=== PATIENT | female | born 1985 | race Caucasian/White ===

== ENCOUNTER 2016-12-14 10:51 | Emergency (ER) ==
[2016-12-14 11:07] VITALS: BP 135/95; TEMP 99.1; BMI 18.2
--- NOTE | 2016-12-14 11:49 | ED.PDOC ---
General ED Provider: Dr. BERNARDINO ADLER JR Chief Complaint: Hypertension Stated Complaint: Elevated BP x 5 days. Hx HTN. Took self off BP med a couple years ago. BP at home was 161/104 at 0930. Gets high if she gets up and moves around. Legs felt weak, SOA (98% on ra in triage). 99.1 92 20 98% 135/95 04/14 Time Seen by Physician: 11:43 Mode of Arrival: Walk-In Information Source: Patient Exam Limitations: No limitations Primary Care Provider: GARRETT HALE Nursing and Triage Documentation Reviewed and Agree: No Review of Systems - Review Of Systems Constitutional: Reports: Malaise Eyes: Reports: No symptoms Ears, Nose, Mouth, Throat: Reports: No symptoms Respiratory: Reports: No symptoms Cardiac: Reports: Chest pain, Palpitations GI: Reports: No symptoms : Reports: No symptoms Musculoskeletal: Reports: No symptoms Skin: Reports: No symptoms Neurological: Reports: Anxiety Endocrine: Reports: No symptoms Hematologic/Lymphatic: Reports: No symptoms All Other Systems: Other Past Medical History - Past Medical History Endocrine: Reports: None Cardiovascular: Reports: Hypertension Respiratory: Reports: None Hematological: Reports: None Gastrointestinal: Reports: None Genitourinary: Reports: None Neuro/Psych: Reports: None Musculoskeletal: Reports: None Cancer: Reports: None Last Menstrual Period: 11/24/16 - Surgical History General Surgical History: Reports: Tubal ligation - Family History Family History: Reports: Heart, Hypertension - Social History Smoking Status: Current every day smoker, Light tobacco smoker Hx Substance Use: No Alcohol Screening: None Physical Exam - Physical Exam Appearance: Well-appearing, Thin Pain Distress: Moderate Eyes: NAKITA, EOMI, Conjunctiva clear ENT: Ears normal, Nose normal, Oropharynx normal Neck: Supple Respiratory: Airway patent, Breath sounds clear, Breath sounds equal, Respirations nonlabored Cardiovascular: RRR, Pulses normal, No rub, No murmur GI/: Soft, Nontender, No masses, Bowel sounds normal, No Organomegaly Musculoskeletal: Normal strength, ROM intact, No edema, No calf tenderness Skin: Warm, Dry, Normal color Neurological: Sensation intact, Motor intact, Reflexes intact, Cranial nerves intact, Alert, Oriented Psychiatric: Affect appropriate, Mood appropriate, Anxious Critical Care Note - Critical Care Note Total Time (mins): 5 Course - Course Hematology/Chemistry: 12/14/16 12:05 12/14/16 12:05 Orders, Labs, Meds: Lab Review 12/14/16 12/14/16 12/14/16 12:05 12:05 12:05 WBC 9.52 RBC 4.78 Hgb 14.5 Hct 41.1 MCV 86.0 MCH 30.3 MCHC 35.3 RDW Coeff of Josey 12.0 Plt Count 159 Immature Gran % (Auto) 0.4 Neut % (Auto) 72.7 Lymph % (Auto) 20.7 [place] % (Auto) 5.0 Eos % (Auto) 0.8 Baso % (Auto) 0.4 Immature Gran # (Auto) 0.0 Neut # 6.9 Lymph # 2.0 [place] # 0.5 Eos # 0.1 Baso # 0.0 Sodium 139 Potassium 4.2 Chloride 108 H Carbon Dioxide 21 Anion Gap 14.2 BUN 11 Creatinine 0.77 Estimated GFR (MDRD) 86.00 BUN/Creatinine Ratio 14.28 Glucose 82 Calcium 9.7 Total Bilirubin 0.83 AST 17 ALT 17 Alkaline Phosphatase 68 Total Creatine Kinase 82 Troponin I < 0.0100 B-Natriuretic Peptide < 10 Total Protein 7.1 Albumin 4.1 Globulin 3.0 Albumin/Globulin Ratio 1.37 Orders Category Date Time Status EKG-(ED ONLY) Stat CARDIO 12/14/16 11:36 Completed B-TYPE NATRIURETIC PEPTIDE Stat LAB 12/14/16 12:05 Completed CBC W/ AUTO DIFF Stat LAB 12/14/16 12:05 Completed COMPREHENSIVE METABOLIC PANEL Stat LAB 12/14/16 12:05 Completed CREATINE KINASE Stat LAB 12/14/16 12:05 Completed TROPONIN I Stat LAB 12/14/16 12:05 Completed Labetalol HCl [Trandate] MEDS 12/14/16 11:54 Discontinued 20 mg IVP ONCE STA CHEST, 1V AP ONLY Stat RADS 12/14/16 11:53 Completed Medications Discontinued Medications Generic Name Dose Route Start Last Admin Trade Name Freq PRN Reason Stop Dose Admin Labetalol HCl 20 mg 12/14/16 11:54 Trandate IVP 12/14/16 11:55 ONCE STA Vital Signs: Temp Pulse Resp BP Pulse Ox 12/14/16 10:53 99.1 F 92 H 20 135/95 H 98 KEO Risk Score KEO Risk Score: Risk Score Odds of by 30D 0 0.1 (0.1-0.2) 1 0.3 (0.2-0.3) 2 0.4 (0.3-0.5) 3 0.7 (0.6-0.9) 4 1.2 (1.0-1.5) 5 2.2 (1.9-2.6) 6 3.0 (2.5-3.6) 7 4.8 (3.8-6.1) Departure - Departure Time of Disposition: 13:22 Disposition: HOME SELF-CARE Discharge Problem: Hypertension Qualifiers: Hypertension type: essential hypertension Qualified Code(s): I10 - Essential ( primary) hypertension Instructions: Hypertension (ED) Condition: Good Pt referred to PMD for follow-up: Yes Additional Instructions: check blood pressure daily return if headache increased shortness of breath or fever over 101.0 labetolol 20 mg daily may take one when filled then one each morning discuss blood pressure and medication with your physician no evidence heart disease on evaluation note atrial enlargement per EKG computer Allergies/Adverse Reactions: Allergies Penicillins Adverse Reaction (Verified 12/14/16 11:00) Home Medications: Ambulatory Orders 1 [No Reported Medications] 12/14/16
[2016-12-14] MEDS ORDERED: TRANDATE IVP STA (11:54)
[2016-12-14 12:11] LABS: BASOPHILS % (AUTO) 0.4 % (0.0-3.0); EOSINOPHILS # (AUTO) 0.1 K/ul (0.0-0.7); EOSINOPHILS % (AUTO) 0.8 % (0.0-7.0); HEMATOCRIT 41.1 % (37.0-47.0); HEMOGLOBIN 14.5 g/dl (12.0-16.0); IMMATURE GRANULOCYTE % (AUTO) 0.4 % (0.0-5.0); LYMPHOCYTES % (AUTO) 20.7 (10.0-50.0); MEAN CORPUSCULAR HEMOGLOBIN 30.3 pg (27.0-31.0); MEAN CORPUSCULAR HGB CONC 35.3 (31.8-35.4); MONOCYTES # (AUTO) 0.5 K/uL (0.4-2.0); NEUTROPHILS # (AUTO) 6.9 K/ul (2.0-6.9); NEUTROPHILS % (AUTO) 72.7; PLATELET COUNT 159 10^3/uL (140-440); RED BLOOD COUNT 4.78 10^6/ul (4.20-5.40); WHITE BLOOD COUNT 9.52 K/ul (4.6-10.2)
--- NOTE | 2016-12-14 12:29 | DI ---
Exam: Single x-ray of the chest. Comparison: None available. Reason for exam: Chest pain. FINDINGS: No pneumothorax, pleural effusion, or focal consolidation. The cardiac silhouette is not e nlarged. The imaged osseous structures appear grossly unremarkable without acute fracture. Impression: No acute cardiothoracic findings.
[2016-12-14 12:38] LABS: ALANINE AMINOTRANSFERASE 17 U/L (12-78); ALBUMIN 4.1 g/dL (3.4-5.0); ALBUMIN/GLOBULIN RATIO 1.37; ALKALINE PHOSPHATASE 68 U/L (42-98); ANION GAP 14.2; ASPARTATE AMINO TRANSFERASE 17 U/L (15-37); BILIRUBIN,TOTAL 0.83 mg/dL (0.00-1.20); BLOOD UREA NITROGEN 11 mg/dL (7-18); BUN/CREATININE RATIO 14.28; CALCIUM 9.7 mg/dL (8.2-10.2); CARBON DIOXIDE 21 mmol/L (21-32); CHLORIDE 108 mmol/L (98-107); CREATINE KINASE 82 U/L; CREATININE 0.77 mg/dL (0.60-1.30); GLUCOSE 82 mg/dL (70-110); POTASSIUM 4.2 mmol/L (3.5-5.10); SODIUM 139 mmol/L (136-145); TOTAL PROTEIN 7.1 g/dL (6.4-8.2)
== END 2016-12-14 14:07 | disposition home or self-care (01) ==
LOC: ED 10:51
DX: I10 Essential (primary) hypertension (principal); I51.7 Cardiomegaly; R06.02 Shortness of breath; R53.1 Weakness; R07.9 Chest pain, unspecified; R00.2 Palpitations; F17.210 Nicotine dependence, cigarettes, uncomplicated
CPT/HCPCS: 36415; 80053; 82550; 83880; 84484; 85025; 93005; 93010; 99283

== ENCOUNTER 2016-12-18 13:06 | Observation (INO) ==
[2016-12-18] MEDS ORDERED: ATROPINE SULFATE PFS IVP PRN (14:07)
[2016-12-18] MEDS ORDERED: TYLENOL PO PRN (14:07)
[2016-12-18] MEDS ORDERED: MORPHINE 4 MG/ML VIAL IVP PRN (14:07)
[2016-12-18] MEDS ORDERED: VISTARIL INJ IM PRN (14:07)
[2016-12-18] MEDS ORDERED: NITROSTAT SL PRN (14:07)
[2016-12-18 14:29] LABS: BASOPHILS # (AUTO) 0.1 K/uL (0-0.2); BASOPHILS % (AUTO) 0.7 % (0.0-3.0); EOSINOPHILS # (AUTO) 0.2 K/ul (0.0-0.7); EOSINOPHILS % (AUTO) 1.9 % (0.0-7.0); HEMATOCRIT 40.5 % (37.0-47.0); IMMATURE GRANULOCYTE % (AUTO) 0.2 % (0.0-5.0); LYMPHOCYTES # (AUTO) 2.2 K/uL (0.60-3.4); LYMPHOCYTES % (AUTO) 23.6 (10.0-50.0); MEAN CORPUSCULAR HEMOGLOBIN 30.3 pg (27.0-31.0); MEAN CORPUSCULAR HGB CONC 34.6 (31.8-35.4); MEAN CORPUSCULAR VOLUME 87.7 fl (81.0-99.0); MONOCYTES # (AUTO) 0.5 K/uL (0.4-2.0); MONOCYTES % (AUTO) 5.1 (0-10); NEUTROPHILS # (AUTO) 6.3 K/ul (2.0-6.9); NEUTROPHILS % (AUTO) 68.5; PLATELET COUNT 179 10^3/uL (140-440); RED BLOOD COUNT 4.62 10^6/ul (4.20-5.40); WHITE BLOOD COUNT 9.16 K/ul (4.6-10.2)
[2016-12-18] MEDS ORDERED: MORPHINE 4 MG/ML SYRINGE IVP PRN (14:29)
[2016-12-18 14:49] LABS: ALBUMIN 4.1 g/dL (3.4-5.0); ALBUMIN/GLOBULIN RATIO 1.41; ANION GAP 12.1; BILIRUBIN,TOTAL 0.6 mg/dL (0.00-1.20); BUN/CREATININE RATIO 14.08; CREATININE 0.71 mg/dL (0.60-1.30); POTASSIUM 4.1 mmol/L (3.5-5.10)
[2016-12-18 15:08] VITALS: BMI 18.4
[2016-12-18 15:25] LABS: CHOL/HDL RATIO 3.7 (4.5-5.5); CHOLESTEROL 132 mg/dL (0-200); CREATINE KINASE 66 U/L; HDL CHOLESTEROL 36 mg/dL (35-80); MYOGLOBIN 22 ng/ml; TRIGLYCERIDES 79 mg/dL (30-150); VLDL CHOLESTEROL 16 mg/dL (2-30)
[2016-12-18] MEDS: LOVENOX SUBCUT SCH (16:47)
--- NOTE | 2016-12-18 16:55 | CT ---
EXAM: CTA CHEST (PE PROTOCOL) HISTORY: Chest pain TECHNIQUE: CTA with intravenous contrast. Multiplanar images were provided with 3-D reconstructions . 100 mL Omnipaque. COMPARISON: None FINDINGS: No pulmonary arterial filling defect is identified. Normal heart size. No pericardial effusion. No significant atherosclerotic disease. Lungs are hyperinflated. Somewhat chronic-appearing interstitial changes are seen. There is promine nt azygous lobe. In the right upper lobe there is a tiny stellate 0.4 cm nodular opacity. No acute infiltrates or vascular congestion. There is no pleural fluid or pneumothorax. Bones are within normal limits. IMPRESSION: 1. No pulmonary arterial thromboembolism is identified. 2. Hyperinflation with chronic interstitial changes. No acute infiltrates. 3. Tiny stellate 0.4 cm nodular opacity in the right upper lobe likely fibrotic. If the patient has risk factors for primary or metastatic neoplasia, follow-up CT thorax in 4 months can be considered.
[2016-12-18] MEDS ORDERED: PROTONIX PO STA (20:37)
[2016-12-18] MEDS ORDERED: DECADRON 4 MG/ML SDV IM STA (20:38)
[2016-12-18 22:23] LABS: BILIRUBIN,URINE Negative (NEGATIVE); KETONES,URINE Negative (NEGATIVE); LEUKOCYTE ESTERASE ,URINE Negative (NEGATIVE); NITRITE,URINE Negative (NEGATIVE); PH,URINE 5.5 (5-9); PROTEIN,URINE Negative (NEGATIVE); URINE, BLOOD 3+ (NEGATIVE)
[2016-12-18 22:24] LABS: ADD URINE MICROSCOPIC YES
[2016-12-18 22:39] LABS: TROPONIN I 0.012 ng/ml (0.0000-0.4000)
[2016-12-19 05:23] VITALS: BP 116/75; TEMP 97
[2016-12-19 06:01] LABS: TROPONIN I 0.01 ng/ml (0.0000-0.4000)
[2016-12-19] MEDS ORDERED: PROTONIX PO SCH (06:30)
[2016-12-19] MEDS ORDERED: ASPIRIN EC PO SCH (08:00)
[2016-12-19] MEDS: LOVENOX SUBCUT SCH (09:57)
--- NOTE | 2016-12-21 13:16 | ECHO2D ---
Date of Exam: 12/19/16 Ordering Physician: GARRETT HALE Room #: 103 Reason for Echo: SHORT OF AIR M-Mode Normal Adult Results LV Dimensions Normal Adult Results AoV Opening excursions >1.6 >1.6 LVEDD-base- 3.5-5.8 3.8 Ao root dimensions 2.0-3.7 2.9 LVESD-base- 3.1-4.6 L. Atrium dimensions 1.9-3.8 2.7 Post. Wall thickness 0.8-1.1 0.9 IV septum (thickness) 0.7-1.2 0.9 Post. Wall excursion 0.72-1.3 NORMAL Septal motion NORMAL Systolic motion R. Ventricular cavity 1.5-2.0 NORMAL LVEF 60% 70% Paradoxical septal wall motion NORMAL 2-D : MITRAL VALVE PROLAPSE NOTED LEFT PARASTERNAL LONG AXIS AND APICAL FOUR CHAMBER VIEW. OTHER VALVES ARE NORMAL, NORMAL LEFT VENTRICULAR CONTRACTILITY-- NO EFFUSION, NO THROMBUS, LEFT ATRIAL AND LEFT VENTRICLE SIZE ARE NORMAL COLOR FLOW: NO MITRAL REGURGITATION M-MODE: MV: MITRAL VALVE PROLAPSE LATE SYSTOLIC AV: NORMAL TV: NORMAL PV: NORMAL CHAMBER SIZE: NORMAL WALL MOTION: NORMAL PERICARDIUM: NORMAL INTERPRETATION: 1. MITRAL VALVE PROLAPSE LATE SYSTOLIC 2. NORMAL LEFT VENTRICULAR CONTRACTILITY 3. NORMAL LEFT VENTRICLE AND LEFT ATRIAL SIZE MTDD
--- NOTE | 2016-12-21 13:34 | STRESSECHO ---
Date of Test: 12/19/16 Reason for Exam: SHORT OF AIR, CHEST PAIN- ATYPICAL Ordering Physician: GARRETT HALE Current Medications: NO HOME MEDICATIONS Physical Findings: S1, S2 Resting EKG: SINUS RHYTHM/ NO ACUTE CHANGES Target Heart Rate: 158/187 STAGE MPH/GRADE HEART RATE BPM BLOOD PRESSURE mmhg RHYTHM S-T SEGMENT +/- UP DOWN SYMPTOMS,COMMENTS At Rest 77 120/80 SR X NONE 1 1.7/10% 124 132/80 SR X NONE 2 2.5/12% 140 136/76 SR X NONE 3 3.4/14% 168 140/70 SR X NONE 4 4.2/16% 5 5.0/18% Immediately after 172 SR X NONE Durations of Exercise: 9:25 Maximum Heart Rate Reached: 172 Reason for Termination: SHORT OF BREATH 5 MINUTES POST EXERCISE: HR 88 BPM, BP 118/82 MMHG INTERPRETATION: 98% OXYGEN SATURATION WITH EXERCISE ON ROOM AIR METS 11.5 1. TEST NEGATIVE FOR ISCHEMIC ST-T WAVE CHANGES 2. NO CHEST PAIN OR CHEST DISCOMFORT OR TIGHTNESS 3. NORMAL BLOOD PRESSURE RESPONSE 4. NO ARRHYTHMIAS NORMAL LEFT VENTRICULAR CONTRACTILITY--RESTING AND POST EXERCISE MTDD
--- NOTE | 2016-12-21 13:38 | ECHOSTRESS ---
Date of Exam: 12/19/16 Ordering Physician: GARRETT HALE Reason for Echo: SOA, CHEST PAIN, STRESS TEST--NO ISCHEMIA M-Mode Normal Adult Results LV Dimensions Normal Adult Results AoV Opening excursions >1.6 LVEDD-base- 3.5-5.8 Ao root dimensions 2.0-3.7 LVESD-base- 3.1-4.6 L. Atrium dimensions 1.9-3.8 Post. Wall thickness 0.8-1.1 IV septum (thickness) 0.7-1.2 Post. Wall excursion 0.72-1.3 Septal motion Systolic motion R. Ventricular cavity 1.5-2.0 LVEF 60% Paradoxical septal wall motion 2-D: NORMAL LEFT VENTRICULAR CONTRACTILITY--RESTING AND POST EXERCISE M-MODE: MV: AV: TV: PV: CHAMBER SIZE: WALL MOTION: NORMAL LEFT VENTRICULAR CONTRACTILITY--RESTING AND POST EXERCISE PERICARDIUM: INTERPRETATION: 1. NORMAL LEFT VENTRICULAR CONTRACTILITY--RESTING AND POST EXERCISE MTDD
--- NOTE | 2016-12-22 14:00 | HP ---
DATE OF SERVICE: 12/18/16 HISTORY OF PRESENT ILLNESS: This is a 31-year-old female who was seen on 12/14/16 in the ER with BP 161/104, fever of 99 deg and severe exhaustion. Last she felt heart racing - started taking BP at home, feeling short of breath, heart racing with exertion. She has had chest pressure off and on times three days (not today). She was given Labetalol 100 mg daily. No coughing. PAST MEDICAL HISTORY: Hypertension Menstrual cycle is normal PAST SURGICAL HISTORY: Tubal REVIEW OF SYSTEMS: CONSTITUTIONAL: Fatigue. No fever. HEENT: No sinus drainage, no sore throat. RESPIRATORY: No cough. No hemoptysis. CARDIOVASCULAR: Atypical chest pain for coronary artery disease. No angina, CHF symptoms, palpitations or shortness of breath. GASTROINTESTINAL: No melena or abdominal pain. No GERD. GENITOURINARY: No hematuria, no prostatism, no polyuria. SECURITIES TRADER: No blackout, no dizziness, no headache, no double vision. MUSCULOSKELETAL: No osteoarthritis pain, no joint swelling. ENDOCRINE: No weight loss, no weight gain. SKIN: Not dry, no rash. PSYCHIATRIC: Not anxious, no depression, no suicidal thoughts, no homicidal thoughts. SOCIAL HISTORY: Smoker. . Three children. No alcohol use. No illicit drug use. [facility] [employer]. FAMILY HISTORY: Father is living; mother is living; four brothers; one sister. MEDICATIONS: (reports no home meds) Labetalol 100 mg b.i.d. Mirapex 0.5 mg t.i.d. Benadryl OTC Zyrtec OTC Claritin OTC Epi-Pen p.r.n. ([place]rees, Dander, environmental) Bystolic 10 mg 1/2 daily Lisinopril 5 mg two h.s. ALLERGIES: PENICILLIN PHYSICAL EXAMINATION: V/S: Pulse 76, BP 112/74, Temperature 99, 02 sat 98%. Weight 101 pounds. Height 5'1", BMI 19.1. GENERAL APPEARANCE: Oriented times three. HEENT: Normal. NECK: No JVP, no bruits. RESPIRATORY: Lungs are clear. CARDIOVASCULAR: S1, S2, no S3, no murmurs. No cyanosis, clubbing. No ascites. GI/ABDOMEN: Tenderness. Bowel sounds are active. EXTREMITIES: No edema, pulses +1, equal. SECURITIES TRADER: Deep tendon reflexes, sensory, motor and gait all normal. RECTAL/PELVIC: Pelvic - clinic in [place] 2015 - ovaries, vagina, cervix. Mammogram Bone density. Foot care. ASSESSMENT: 1. CHEST PRESSURE/WEAKNESS/SHORTNESS OF BREATH TIMES FOUR DAYS 2. SMOKING 3. GENERALIZED ANXIETY DISORDER 4. HISTORY OF HYPERTENSION (ER VISIT AT [facility] WITH SEVERE HYPERTENSION AND SOB. PLAN: 1. Admit to observation 2. Routine telemetry orders 3. Echocardiogram and stress echo 4. T4, TSH, lipids 5. PFT 6. CT of the chest - pulmonary embolism protocol with contrast 7. Lovenox 40 mg q.6 daily 8. Continue all medications TIME SPENT: More than 70 minutes. MTDD
--- NOTE | 2017-01-20 12:57 | DS ---
DATE OF SERVICE: 12/19/16 FINAL DIAGNOSIS: 1. CHEST PAIN, CHEST PRESSURE NONCARDIAC 2. MITRAL VALVE PROLAPSE/ANXIETY DISORDER DISCHARGE INSTRUCTIONS: Followup appointment: Followup with Dr. García on 12/21/16 or 12/22. Instructed to come back on Wednesday or Wednesday morning for followup. Return to ER with any reoccurring symptoms. MEDICATIONS AT DISCHARGE: Ativan 0.5 twice a day for panic, total of #20 with one refill NEW PRESCRIPTIONS: Ativan 0.5 mg one tablet by mouth twice a day as needed for anxiety/panic attacks. DIET INSTRUCTIONS: Regular diet. ACTIVITY: As tolerated. SMOKING: Smoker. DISEASE SPECIFIC EDUCATION: Medications Followup Counseling for smoking done HOSPITAL COURSE: 31-year-old white female hospitalized with chest pressure, chest tightness, palpitation, extreme weakness and fatigue, tired feeling. The pain was right- sided, center of the chest. The patient has been under a lot of pressure and anxiety with panic type of disorder with palpitations and chest pressure comes at any time but lately has been more or less constant for past 3 to 4 days unrelated to exertion. The patient also has exhaustion and tired feeling. She says that her extremities tingle and becomes numb whenever she gets this type of attack. The patient has family history of heart disease. She is a smoker. Counseling for smoking done. On the day of discharge, the patient had vitals of 97, temperature 97, pulse 84, pulmonary respiratory rate 23, BP 116/75, pulse ox 100%. Condition stable. TIME SPENT: More than 60 minutes. CHEVY
--- NOTE | 2017-01-20 13:12 | PN ---
DATE OF SERVICE: 12/19/16 - DISCHARGE NOTE SUBJECTIVE: 31-year-old white female hospitalized with chest pressure, chest tightness, palpitation, extreme weakness and fatigue, tired feeling. The pain was right- sided, center of the chest. The patient has been under a lot of pressure and anxiety with panic type of disorder with palpitations and chest pressure comes at any time but lately has been more or less constant for past 3 to 4 days unrelated to exertion. The patient also has exhaustion and tired feeling. She says that her extremities tingle and becomes numb whenever she gets this type of attack. The patient has family history of heart disease. She is a smoker. Counseling for smoking done. On the day of discharge, the patient had vitals of 97, temperature 97, pulse 84 , pulmonary respiratory rate 23, BP 116/75, pulse ox 100%. REVIEW OF SYSTEMS: CONSTITUTIONAL: No night sweats. No fatigue, malaise, lethargy. No fever or chills. HEENT: Eyes: No visual changes. No eye pain. No eye discharge. ENT: No runny nose. No epistaxis. No sinus pain. No sore throat. No odynophagia. No congestion. RESPIRATORY: No cough, no congestion. No hemoptysis. No shortness of breath. CARDIOVASCULAR: No angina symptoms. No CHF symptoms. No atypical chest pain for CAD. No palpitations. No orthopnea. GASTROINTESTINAL: No abdominal pain. No nausea or vomiting. No diarrhea or constipation. No hematemesis. No hematochezia. GENITOURINARY: No urgency. No frequency. No dysuria. No hematuria. No obstructive symptoms. No discharge. No pain. No significant abnormal bleeding. MUSCULOSKELETAL: No musculoskeletal pain; no joint swelling. NEUROLOGICAL: No headache. No neck pain. No syncope. No seizures. No dizziness. PSYCHIATRIC: Not anxious. No depression. No suicidal thoughts. No homicidal thoughts. SKIN: No rash. No lesions. No wounds. ENDOCRINE: No unexplained weight loss. No weight gain. HEMATOLOGIC/LYMPHATIC: No anemia. No purpura. No petechiae. No prolonged or excessive bleeding. No palpable lymph nodes. PHYSICAL EXAMINATION: VITAL SIGNS: Temperature 97, pulse 84/min, respiratory rate 23, BP 116/75, pulse ox 90-100%. HEENT: Head normocephalic, atraumatic. Eyes: Extraocular muscles are intact. Pupils are equal, round and reactive to light and accommodation. Ears: No lesions. Nose appeared normal. Throat: No exudate or erythema. NECK: Supple. No JVD, no carotid bruit. No lymphadenopathy or thyromegaly. LUNGS: Decreased breath sounds but clear to auscultation. Percussion note normal. Chest symmetrical. HEART: S1, S2, no S3. No murmurs. No cyanosis or clubbing. No ascites. Pulses: Dorsalis pedis and posterior tibial pulses +1 to +2 both sides. ABDOMEN: Soft. Nontender. Bowel sounds active. No CVA tenderness. No mass felt. EXTREMITIES: No edema. Full range of motion of all extremities, equal. NEUROLOGIC: No focal deficit. Cranial nerves II through XII are grossly intact. No headache, no double vision or headache. SKIN: Not dry. Intact. Turgor - normal. LYMPHATIC: No palpable lymph nodes/no lymphedema. MUSCULOSKELETAL: Normal joints with no swelling. Muscle tone is normal. LABS: Hemoglobin 14, hematocrit 40, WBC 9,000, normal differential. Creatinine 0.7, BUN 10, potassium 4.1. The patient's echocardiogram showed mitral valve prolapse , systolic with no mitral regurgitation. The patient had a stress echo which was negative for ischemia. The patient's telemetry, cardiac markers were all negative for ischemia. The patient was explained about anxiety, advised to exercise. She has started exercising lately. She has good exercise capacity. Advised to quit smoking. Counseling for smoking done. At time of discharge, the patient's condition stable. She does not have any suicidal or homicidal ideas or tendancy. She has anxiety. CONDITION: Stable. TIME SPENT: More than 30 minutes. Plan and coordination of the patient's care discussed in the presence of nurse. CHEVY
--- NOTE | 2017-01-20 13:17 | PN ---
CODING FOR BILLIN12/18/16 LEVEL 5 12/19/16 DISCHARGE/EXTENSIVE MTDD
== END 2016-12-19 09:30 | disposition home or self-care (01) ==
LOC: INTOOBSV 13:06 → MEDSURG A 13:06
PROVIDERS: ADMIT Internal Medicine; ATTEND Internal Medicine
DX: R07.89 Other chest pain (principal); I34.1 Nonrheumatic mitral (valve) prolapse; R06.02 Shortness of breath; F41.9 Anxiety disorder, unspecified; R53.1 Weakness; R53.83 Other fatigue; F17.200 Nicotine dependence, unspecified, uncomplicated; Z82.49 Family history of ischemic heart disease and other diseases of the circulatory system; Z79.899 Other long term (current) drug therapy
CPT/HCPCS: 36415; 80053; 80061; 81001; 82550; 83874; 84439; 84443; 84484; 85025; 93005; 93010; 99217; 99219